=== PATIENT | male | born 1980 | race Caucasian/White ===

== ENCOUNTER 2017-12-24 15:28 | Emergency (ER) | payer MEDICAID, OTHER ==
[~2017-12-24] VITALS: Ht 177.8 cm; Wt 77.1 kg
[2017-12-24 15:47] VITALS: BP 110/71
[2017-12-24] MEDS ORDERED: LIDOCAINE /MPF 1% VIAL 5 ML VIAL ONE (16:15)
--- NOTE | 2017-12-24 16:16 | NUR ---
TERA AT BEDSIDE FOR I & D.
--- NOTE | 2017-12-24 16:17 | NUR ---
I & D IN PROGRESS AT BEDSIDE.
== END 2017-12-24 17:32 | disposition home or self-care (01) ==
LOC: ER 15:30
DX: L03.031 Cellulitis of right toe (principal)
CPT/HCPCS: A4606; A6402; J3490; Z7610

== ENCOUNTER 2018-12-24 13:32 | Emergency (ER) | payer OTHER ==
[~2018-12-24] VITALS: Ht 177.8 cm; Wt 82.1 kg
[2018-12-24 13:58] VITALS: BP 103/69
[2018-12-24] MEDS ORDERED: KETOROLAC TROMETHAMINE INJ 60 MG/2 ML VIAL IM ONE ×2 (14:35→15:00)
== END 2018-12-24 15:19 | disposition home or self-care (01) ==
LOC: ER 13:37
DX: S39.012A Strain of muscle, fascia and tendon of lower back, initial encounter (principal); W22.8XXA Striking against or struck by other objects, initial encounter; Y93.89 Activity, other specified; Y92.89 Other specified places as the place of occurrence of the external cause; Y99.8 Other external cause status
CPT/HCPCS: 96372; 99283; J1885

== ENCOUNTER → 2021-02-12 | Emergency (ER) | payer OTHER ==
[~2021-02-12] VITALS: Ht 177.8 cm; Wt 72.6 kg
[~2021-02-12] MED LIST: AMOX500T2 PO; OFLO5DRO5 LEFT EAR
[2021-02-12 12:25] VITALS: BP 112/76
--- NOTE | 2021-02-12 12:49 | NUR ---
Patient discharged to home in stable condition. Written and verbal after care instructions given. Patient verbalizes understanding of instruction. Pt ambulatory with a steady gait
--- NOTE | 2021-02-12 12:50 | NUR ---
pt have left. unable to de[part on [facility]
== END | disposition home or self-care (01) ==
LOC: ER 13:08
DX: H60.92 Unspecified otitis externa, left ear (principal); H66.92 Otitis media, unspecified, left ear; F20.9 Schizophrenia, unspecified